=== PATIENT | male | born 1940 | race Caucasian/White ===

== ENCOUNTER 2017-05-12 18:26 | Emergency (ER) | payer MEDICARE ==
[~2017-05-12] VITALS: Ht 172.7 cm; Wt 67.1 kg
== END 2017-05-12 18:50 | disposition expired ==
LOC: ED 18:26
DX: S72.092A Other fracture of head and neck of left femur, initial encounter for closed fracture (principal); I46.9 Cardiac arrest, cause unspecified; W10.8XXA Fall (on) (from) other stairs and steps, initial encounter; Y93.89 Activity, other specified; Y92.89 Other specified places as the place of occurrence of the external cause; Y99.8 Other external cause status